=== PATIENT | male | born 1985 | race Caucasian/White ===

== ENCOUNTER 2019-09-06 13:01 | Emergency (ER) | payer BC, SELFPAY ==
[~2019-09-06] VITALS: Ht 177.8 cm; Wt 88.5 kg
[2019-09-06 13:13] VITALS: BP 131/76
--- NOTE | 2019-09-06 14:17 | NUR ---
COVID-19 SWAB COLLECTED
--- NOTE | 2019-09-06 14:20 | NUR ---
Patient discharged with v/s stable. Written and verbal after care instructions given and explained. Patient alert, oriented and verbalized understanding of instructions. Ambulatory with steady gait. All questions addressed prior to discharge. ID band removed. Patient advised to follow up with PMD. Rx of PROMETHAZINE/IBUPROFEN given. Patient educated on indication of medication including possible reaction and side effects. Opportunity to ask questions provided and answered.
[2019-09-06 14:21] VITALS: BP 131/76
--- NOTE | 2019-09-09 16:24 | NUR ---
POSITIVE COVID RESULT RECEIVED FROM LAB. THEY WILL PROVIDE HARD COPY
== END 2019-09-06 14:20 | disposition home or self-care (01) ==
LOC: EEVIPCON 13:01 → MED 13:01
DX: U07.1 COVID-19 (principal); R03.0 Elevated blood-pressure reading, without diagnosis of hypertension
CPT/HCPCS: 99283; U0003